=== PATIENT | male | born 1965 | race Caucasian/White ===

== ENCOUNTER 2021-11-13 11:05 | Day surgery (SDC) | payer MEDICARE ==
[2021-11-13] MEDS ORDERED: Depo-Medrol 40 MG/ML IM ONE (11:06)
[2021-11-13] MEDS ORDERED: Xylocaine 1% Vial 30 ML PF IJ ONE (11:06)
[2021-11-13] MEDS ORDERED: BUPIVACAINE 0.5% VIAL IJ ONE (11:06)
[2021-11-13] MEDS ORDERED: DIPRIVAN 200 MG/20 ML IV ONE ×2 (13:16→13:30)
[2021-11-13] MEDS ORDERED: Lactated Ringers 1,000 ML IV ONE (14:48)
--- NOTE | 2021-11-13 14:55 | XRAY ---
Indication: Caudal GREGOR. Intraoperative fluoroscopy provided for 41 seconds. 2 digital spot image submitted for interpretation demonstrates caudal needle tip projecting mid sacrum. Small amount of contrast injected for needle placement. Correlate with intraoperative findings/report.
--- NOTE | 2021-11-13 15:01 | XRAY ---
41 seconds fluoroscopy time in surgery for caudal GREGOR.
== END 2021-11-13 13:55 | disposition home or self-care (01) ==
LOC: SDC-PAIN 11:05
PROVIDERS: ATTEND Psychiatry & Neurology Pain Medicine
DX: M54.16 Radiculopathy, lumbar region (principal); Z79.899 Other long term (current) drug therapy
CPT/HCPCS: 62323; 72100; 77003; J1030; J2001; J2704; Q9966